=== PATIENT | male | born 1995 | race African-American/Black ===

== ENCOUNTER 2016-07-03 14:46 | Emergency (ER) | payer OTHER ==
[~2016-07-03] VITALS: Ht 188 cm; Wt 73.9 kg
[2016-07-03 14:46] VITALS: BP 138/77
[2016-07-03] MEDS ORDERED: FLUORESCEIN OPHTH 1 MG STRIP As Ordered ONE (15:09)
[2016-07-03] MEDS ORDERED: FLUORESCEIN OPHTH 1 MG STRIP OS ONE (15:15)
[2016-07-03] MEDS ORDERED: IBUPROFEN 800 MG TAB PO ONE (15:45)
--- NOTE | 2016-07-03 15:51 | REP ---
MAXILLOFACIAL CT WITHOUT CONTRAST: HISTORY: Trauma. Minimal mucosal thickening is present in the left maxillary sinus. The remaining sinuses are clear. The ostiomeatal units are patent. The middle and inferior nasal turbinates are partially paradoxical. There is beatriz bullosa of the middle nasal turbinates. There is minimal deviation of the nasal septum to the right. A spur is present arising from the right side of the nasal septum. The nasal septum abuts the right middle and inferior nasal turbinates. The cribriform plate, medial romo of the orbits and optic canals are intact. The carotid canals form a segment of the posterolateral romo of the sphenoid sinus. There is no fracture. Soft tissue swelling is present over the left orbit and zygoma. IMPRESSION: 1. Sinus mucosal thickening as described above. 2. There is no fracture. Signed by Abelino Klein MD 07/03/2016 03:53 P
[2016-07-03] MEDS ORDERED: OFLO0.3D57 OS (15:56)
== END 2016-07-03 16:04 | disposition home or self-care (01) ==
LOC: M ED 15:30
DX: S05.02XA Injury of conjunctiva and corneal abrasion without foreign body, left eye, initial encounter (principal); H11.32 Conjunctival hemorrhage, left eye; S05.12XA Contusion of eyeball and orbital tissues, left eye, initial encounter; W50.0XXA Accidental hit or strike by another person, initial encounter; Y92.310 Basketball court as the place of occurrence of the external cause; Y93.67 Activity, basketball; Y99.9 Unspecified external cause status

== ENCOUNTER 2016-09-20 15:56 | Emergency (ER) | payer OTHER ==
[~2016-09-20] VITALS: Ht 188 cm; Wt 80.0 kg
[~2016-09-20 15:56] MED LIST: OFLO0.3D57 OS
[2016-09-20] MEDS ORDERED: HYDROmorphone HCL 1 MG/ML SYRINGE (J1170) IM ONE (16:45)
[2016-09-20] MEDS ORDERED: LIDOCAINE W/EPINEPHRINE 1% 20ML VIAL SC ONE (17:15)
[2016-09-20] MEDS ORDERED: HYDR-3713 PO (17:55)
[2016-09-20 18:28] VITALS: BP 144/73
--- NOTE | 2016-09-20 18:36 | REP ---
CT BRAIN WITHOUT IV CONTRAST: CT brain is performed without IV contrast. Ventricles are normal in size and position. There is no midline shift. No abnormal densities are seen. There is no acute hemorrhage or extra-axial fluid collection. Henderson-white differentiation is well maintained. No skull fracture is seen. The visualized paranasal sinuses appear clear. IMPRESSION: Negative noncontrast CT brain. Signed by Edward Henderson MD 09/20/2016 08:19 P
--- NOTE | 2016-09-20 18:54 | REP ---
CT CERVICAL SPINE: CT cervical spine is performed in the axial plane. Sagittal and coronal reconstructions images are performed. There is no fracture or dislocation. Vertebral bodies are normal in height and are well aligned with normal cervical lordosis. There is no prevertebral soft-tissue swelling. Disc spaces are well preserved. Spinal canal was grossly unremarkable. IMPRESSION: No evidence of fracture or dislocation. Signed by Edward Henderson MD 09/20/2016 08:19 P
--- NOTE | 2016-09-20 18:55 | REP ---
CT THORACIC SPINE: CT thoracic spine is performed in the axial plane with sagittal and coronal reconstruction images. There is no compression fracture .There is no malalignment with normal thoracic kyphosis. Thoracic disc spaces demonstrate normal thickness. Visualized lung morris are clear with no abnormality identified. Spinal canal is grossly unremarkable. IMPRESSION: No fracture or dislocation. Signed by Edward Henderson MD 09/20/2016 08:19 P
--- NOTE | 2016-09-20 18:57 | REP ---
CT LUMBAR SPINE: CT lumbar spine performed in the axial plane with sagittal and coronal reconstruction images. There is no compression fracture. Vertebral bodies are normal in height and well aligned with normal lumbar lordosis. There is mild curvature convex to the right. Spinal canal appears grossly unremarkable. IMPRESSION: No evidence of fracture or dislocation. Signed by Edward Henderson MD 09/20/2016 08:19 P
--- NOTE | 2016-09-20 19:15 | REP ---
RIGHT KNEE, FIVE VIEWS: There is no evidence of an acute fracture, dislocation or intrinsic bone disease. There is a small joint effusion. IMPRESSION: No fracture or dislocation. Signed by Edward Henderson MD 09/20/2016 08:20 P
== END 2016-09-20 18:29 | disposition home or self-care (01) ==
LOC: EDBD 15:56 → M ED 15:56
DX: S81.011A Laceration without foreign body, right knee, initial encounter (principal); S30.0XXA Contusion of lower back and pelvis, initial encounter; S80.01XA Contusion of right knee, initial encounter; S16.1XXA Strain of muscle, fascia and tendon at neck level, initial encounter; V86.04XA Driver of military vehicle injured in traffic accident, initial encounter; Y92.410 Unspecified street and highway as the place of occurrence of the external cause; Y93.89 Activity, other specified; Y99.1 Military activity; Z87.891 Personal history of nicotine dependence
CPT/HCPCS: 12002; 70450; 72125; 72128; 72131; 73564; 96372; 99283; J1170

== ENCOUNTER 2017-07-08 15:19 | Emergency (ER) | payer OTHER ==
[2017-07-08] MEDS: PERCOCET 5MG/325MG TAB PO (15:53)
== END 2017-07-08 16:50 | disposition home or self-care (01) ==
LOC: M ED 15:19
DX: M25.461 Effusion, right knee (principal); Z98.890 Other specified postprocedural states; Z79.82 Long term (current) use of aspirin
CPT/HCPCS: 73560